=== PATIENT | female | born 1980 ===

== ENCOUNTER 2017-05-25 06:10 | Emergency (ER) | payer MEDICAID ==
[2017-05-25] MEDS ORDERED: Ondansetron 4 MG/2 ML SDV IVPUSH ONE (06:31)
[2017-05-25] MEDS ORDERED: Sodium Chloride 0.9% 1,000 ML IV STA (06:31)
[2017-05-25] MEDS ORDERED: Sodium Chloride 0.9% 10 ML Syringe FLUSH PRN (06:31)
[2017-05-25] MEDS ORDERED: HYDROmorphone 1 MG/ML Syringe IVPUSH ONE (06:32)
--- NOTE | 2017-05-25 06:43 | EDM.PDOC ---
<Ted Smith - Last Filed: 05/25/17 09:13> ED HPI GENERAL MEDICAL PROBLEM - General Chief Complaint: Abdominal Pain Stated Complaint: ABDOMINAL PAIN Time Seen by Provider: 05/25/17 06:27 - Related Data Allergies Allergy/AdvReac Type Severity Reaction Status Date / Time No Known Allergies Allergy Verified 05/25/17 06:19 Home Meds: Home Meds Hydrocodone/Acetaminophen [[place] 5-325 Tablet] 1 - 2 tab PO Q6H PRN #20 tablet 05/25/17 [Rx] Ibuprofen 800 mg PO Q8H PRN 05/25/17 [History] Ondansetron [Zofran ODT] 4 mg PO Q6H PRN #10 tab.dis 05/25/17 [Rx] oxyCODONE HCl/Acetaminophen [Percocet 5-325 mg Tablet] 1 - 2 tab PO Q6H PRN 02/06 [History] Course - Vital Signs Last Recorded V/S: Last Vital Signs Temp 98.1 F 05/25/17 10:00 Pulse 80 05/25/17 10:00 Resp 16 05/25/17 06:16 BP 112/90 05/25/17 10:00 Pulse Ox 97 05/25/17 10:00 - Orders/Labs/Meds Orders: Active Orders 24 hr Category Date Time Status Pelvic Exam, Set Up [RC] ASDIRECTED Care 05/25/17 06:33 Active Peripheral IV Care [RC] . DIRECTED Care 05/25/17 06:31 Active CULTURE GENITAL [RM] Stat Lab 05/25/17 06:57 Received ED Antiemetic Medication Reflex [OM.PC] Stat Oth 05/25/17 06:31 Ordered Peripheral IV Insertion Adult [OM.PC] Stat Oth 05/25/17 06:31 Ordered Labs: Laboratory Tests 05/25/17 05/25/17 05/25/17 Range/Units 06:35 06:35 07:45 WBC 12.93 H (3.98-10.04) K/mm3 RBC 4.25 (3.98-5.22) M/mm3 Hgb 11.7 (11.2-15.7) gm/L Hct 34.4 (34.1-44.9) % MCV 80.9 (79.4-94.8) fl MCH 27.5 (25.6-32.2) pg MCHC 34.0 (32.2-35.5) g/dl RDW Std Deviation 38.9 (36.4-46.3) fL Plt Count 285 (182-369) K/mm3 MPV 10.1 (9.4-12.3) fl Neut % (Auto) 71.2 H (34.0-71.1) % Lymph % (Auto) 20.6 (19.3-51.7) % [place] % (Auto) 6.9 (4.7-12.5) % Eos % (Auto) 0.8 (0.7-5.8) Baso % (Auto) 0.2 (0.1-1.2) % Neut # (Auto) 9.21 H (1.56-6.13) K/mm3 Lymph # (Auto) 2.66 (1.18-3.74) K/mm3 [place] # (Auto) 0.89 H (0.24-0.36) K/mm3 Eos # (Auto) 0.10 (0.04-0.36) K/mm3 Baso # (Auto) 0.03 (0.01-0.08) K/mm3 Sodium 137 (136-145) mEq/L Potassium 3.6 (3.5-5.1) mEq/L Chloride 104 (98-107) mEq/L Carbon Dioxide 24 (21-32) mEq/L Anion Gap 12.6 (5-15) BUN 9 (7-18) mg/dL Creatinine 0.8 (0.55-1.02) mg/dL Est Cr Clr Drug Dosing 99.95 mL/min Estimated GFR (MDRD) > 60 (>60) mL/min BUN/Creatinine Ratio 11.3 L (14-18) Glucose 108 H (74-106) mg/dL Calcium 8.6 (8.5-10.1) mg/dL Total Bilirubin 0.3 (0.2-1.0) mg/dL AST 15 (15-37) U/L ALT 22 (14-59) U/L Alkaline Phosphatase 66 (46-116) U/L Total Protein 7.3 (6.4-8.2) g/dl Albumin 3.4 (3.4-5.0) g/dl Globulin 3.9 gm/dL Albumin/Globulin Ratio 0.9 L (1-2) Lipase 104 (73-393) U/L Urine Color Yellow (Yellow) Urine Appearance Clear (Clear) Urine pH 6.0 (5.0-8.0) Ur Specific [place] > or = 1.030 (1.005-1.030) Urine Protein 1+ H (Negative) Urine Glucose (UA) Negative (Negative) Urine Ketones Negative (Negative) Urine Occult Blood 3+ H (Negative) Urine Nitrite Negative (Negative) Urine Bilirubin Negative (Negative) Urine Urobilinogen 0.2 (0.2-1.0) Ur Leukocyte Esterase Trace H (Negative) Urine RBC 10-20 H (0-5) /hpf Urine WBC 5-10 H (0-5) /hpf Ur Epithelial Cells 5-10 H (0-5) /hpf Urine Bacteria Few (FEW) /hpf Urine Mucus Few (FEW) /hpf Meds: Medications Discontinued Medications Generic Name Dose Route Start Last Admin Trade Name Freq PRN Reason Stop Dose Admin Hydromorphone HCl 1 mg 05/25/17 06:32 05/25/17 06:44 Dilaudid IVPUSH 05/25/17 06:33 1 mg ONETIME ONE Administration Hydromorphone HCl 0.5 mg 05/25/17 08:11 05/25/17 08:20 Dilaudid IVPUSH 05/25/17 08:12 0.5 mg ONETIME ONE Administration Sodium Chloride 1,000 mls @ 1,000 mls/hr 05/25/17 06:31 05/25/17 06:43 Normal Saline IV 05/25/17 07:30 1,000 mls/hr .BOLUS STA Administration Ondansetron HCl 4 mg 05/25/17 06:31 05/25/17 06:44 Zofran IVPUSH 05/25/17 06:32 4 mg ONETIME ONE Administration Sodium Chloride 10 ml 05/25/17 06:31 05/25/17 06:45 Saline Flush FLUSH 10 ml ASDIRECTED PRN Administration Keep Vein Open - Re-Assessments/Exams Free Text/Narrative Re-Assessment/Exam: 05/25/17 09:27 Urinalysis appears contaminated but not suspicious of infection. We'll set up a urine culture. Case reviewed with Dr. Garrido. Patient follow-up with [facility]ODUCTION AIDE on Thursday. With discussion with the patient she's not tolerating her Percocet she thinks she's done well with hydrocodone in the past we'll discharge her with a prescription for hydrocodone and some Zofran to help control her nausea advised her not to take her pain medications with ibuprofen in the future ibuprofen should be taken with food and often the pain medications to be taken with food. Departure - Departure Time of Disposition: 09:29 Disposition: Home, Self-Care 01 Clinical Impression: Pelvic pain - Discharge Information Prescriptions: Hydrocodone/Acetaminophen [[place] 5-325 Tablet] 1 - 2 tab PO Q6H PRN #20 tablet PRN Reason: Abdominal Pain Ondansetron [Zofran ODT] 4 mg PO Q6H PRN #10 tab.dis PRN Reason: Nausea/Vomiting Instructions: Pelvic Pain, Female, [id number] Referrals: Mary Daily MD [Primary Care Provider] - Forms: ED Department Discharge Additional Instructions: Return to the emergency room with any questions or problems or worsening symptoms. Follow-up with [facility] on Thursday for recheck. Stop the Percocet as this is causing problems for you try the [place], or hydrocodone one or 2 every 6 hours as needed for discomfort. Allow 12 hours after using this medication before driving or returning to work. You've also been given a prescription for Zofran take one every 6 hours as needed for nausea and vomiting. Push lots of fluids. Return to the emergency room immediately with any fevers or chills. - My Orders Last 24 Hours: My Active Orders 05/25/17 06:31 Peripheral IV Care [RC] . DIRECTED ED Antiemetic Medication Reflex [OM.PC] Stat Peripheral IV Insertion Adult [OM.PC] Stat 05/25/17 06:33 Pelvic Exam, Set Up [RC] ASDIRECTED 05/25/17 06:57 CULTURE GENITAL [RM] Stat - Assessment/Plan Last 24 Hours: My Active Orders 05/25/17 06:31 Peripheral IV Care [RC] . DIRECTED ED Antiemetic Medication Reflex [OM.PC] Stat Peripheral IV Insertion Adult [OM.PC] Stat 05/25/17 06:33 Pelvic Exam, Set Up [RC] ASDIRECTED 05/25/17 06:57 CULTURE GENITAL [RM] Stat <Pavel Ang Last Filed: 05/25/17 19:46> ED HPI GENERAL MEDICAL PROBLEM - General Source of Information: Reports: Patient History Limitations: Reports: No Limitations - History of Present Illness INITIAL COMMENTS - FREE TEXT/NARRATIVE: The patient presents with lower abdominal pain that radiates to her groin. She had a D&C last Thursday about 5 days ago. She had a incomplete . The D&C was done over at [facility] by Dr Daily. The patient had pain after and has increased. She also has bleeding that was worse right after the procedure. That has gotten better. She has nausea and vomiting. She tried taking her ibuprofen and percocet this morning but she vomited. She has no dysuria and no diarrhea. Onset: Gradual Duration: Day(s): (5) Location: Reports: Abdomen (to her pelvis) Quality: Reports: Sharp Severity: Moderate Improves with: Reports: None Worsens with: Reports: None Associated Symptoms: Reports: Nausea/Vomiting. Denies: Chest Pain, Cough, Fever /Chills, Loss of Appetite, Shortness of Breath Abdomen Pain Score (Numeric/FACES): 9 Past Medical History - Past Surgical History GI Surgical History: Reports: Appendectomy Female Surgical History: Reports: Section, D&C Social & Family History - Tobacco Use Smoking Status *Q: Current Every Day Smoker Years of Tobacco use: 20 Packs/Tins Daily: 0.5 - Caffeine Use Caffeine Use: Reports: Coffee, Tea - Recreational Drug Use Recreational Drug Use: No ED ROS GENERAL - Review of Systems Review Of Systems: See Below Constitutional: Reports: No Symptoms HEENT: Reports: No Symptoms Respiratory: Reports: No Symptoms Cardiovascular: Reports: No Symptoms Endocrine: Reports: No Symptoms GI/Abdominal: Reports: Abdominal Pain (Moderate pain upon palpation to the lower abdomen) : Reports: Other (Pelvic pain and vaginal bleeding) Musculoskeletal: Reports: No Symptoms Skin: Reports: No Symptoms ED EXAM, GI/ABD - Physical Exam Exam: See Below Exam Limited By: No Limitations General Appearance: Alert, No Apparent Distress Ears: Normal External Exam Nose: Normal Inspection Head: Atraumatic, Normocephalic Neck: Normal Inspection Respiratory/Chest: No Respiratory Distress, Lungs Clear, Normal Breath Sounds Cardiovascular: Regular Rate, Rhythm, No Edema, No Murmur GI/Abdominal: Soft, No Organomegaly, No Mass, Tenderness (Moderate to the lower abdomen) (Female) Exam: Other (Normal external exam. Mild amount of blood in the vaginal vault. Cervic is open slightly.) Back Exam: Normal Inspection Extremities: Normal Inspection Course - Orders/Labs/Meds Labs: Laboratory Tests 05/25/17 05/25/17 05/25/17 Range/Units 06:35 06:35 07:45 WBC 12.93 H (3.98-10.04) K/mm3 RBC 4.25 (3.98-5.22) M/mm3 Hgb 11.7 (11.2-15.7) gm/L Hct 34.4 (34.1-44.9) % MCV 80.9 (79.4-94.8) fl MCH 27.5 (25.6-32.2) pg MCHC 34.0 (32.2-35.5) g/dl RDW Std Deviation 38.9 (36.4-46.3) fL Plt Count 285 (182-369) K/mm3 MPV 10.1 (9.4-12.3) fl Neut % (Auto) 71.2 H (34.0-71.1) % Lymph % (Auto) 20.6 (19.3-51.7) % [place] % (Auto) 6.9 (4.7-12.5) % Eos % (Auto) 0.8 (0.7-5.8) Baso % (Auto) 0.2 (0.1-1.2) % Neut # (Auto) 9.21 H (1.56-6.13) K/mm3 Lymph # (Auto) 2.66 (1.18-3.74) K/mm3 [place] # (Auto) 0.89 H (0.24-0.36) K/mm3 Eos # (Auto) 0.10 (0.04-0.36) K/mm3 Baso # (Auto) 0.03 (0.01-0.08) K/mm3 Sodium 137 (136-145) mEq/L Potassium 3.6 (3.5-5.1) mEq/L Chloride 104 (98-107) mEq/L Carbon Dioxide 24 (21-32) mEq/L Anion Gap 12.6 (5-15) BUN 9 (7-18) mg/dL Creatinine 0.8 (0.55-1.02) mg/dL Est Cr Clr Drug Dosing 99.95 mL/min Estimated GFR (MDRD) > 60 (>60) mL/min BUN/Creatinine Ratio 11.3 L (14-18) Glucose 108 H (74-106) mg/dL Calcium 8.6 (8.5-10.1) mg/dL Total Bilirubin 0.3 (0.2-1.0) mg/dL AST 15 (15-37) U/L ALT 22 (14-59) U/L Alkaline Phosphatase 66 (46-116) U/L Total Protein 7.3 (6.4-8.2) g/dl Albumin 3.4 (3.4-5.0) g/dl Globulin 3.9 gm/dL Albumin/Globulin Ratio 0.9 L (1-2) Lipase 104 (73-393) U/L Urine Color Yellow (Yellow) Urine Appearance Clear (Clear) Urine pH 6.0 (5.0-8.0) Ur Specific [place] > or = 1.030 (1.005-1.030) Urine Protein 1+ H (Negative) Urine Glucose (UA) Negative (Negative) Urine Ketones Negative (Negative) Urine Occult Blood 3+ H (Negative) Urine Nitrite Negative (Negative) Urine Bilirubin Negative (Negative) Urine Urobilinogen 0.2 (0.2-1.0) Ur Leukocyte Esterase Trace H (Negative) Urine RBC 10-20 H (0-5) /hpf Urine WBC 5-10 H (0-5) /hpf Ur Epithelial Cells 5-10 H (0-5) /hpf Urine Bacteria Few (FEW) /hpf Urine Mucus Few (FEW) /hpf - Re-Assessments/Exams Free Text/Narrative Re-Assessment/Exam: 05/25/17 06:44 I ordered an IV NS 1L bolus, zofran 4mg IV, dilaudid 1mg IV, labs, UA, pelvic exam and transvaginal US. 05/25/17 06:59 Her pelvic exam shows a cervix that was opened slightly and some bleeding. It is the end of my shift. Dr Smith to take over. Departure - Departure Condition: Good
[2017-05-25] MEDS ORDERED: HYDROmorphone 0.5 MG/0.5 ML Syringe IVPUSH ONE (08:11)
--- NOTE | 2017-05-25 08:38 | US ---
Pelvic ultrasound: Multiple real-time images were obtained transvaginally. Comparison: No previous study is available. Findings: Incidental nabothian cysts are seen. Uterus is anteverted. Good endometrial stripe is not seen. No comments about endometrial thickening can be made. Several small hyperechoic areas are seen within the uterus most likely representing small fibroids. Small complicated area is noted within the left ovary most likely due to collapsing hemorrhagic cyst measuring 1.7 cm which is felt to be of no acute significance. Right ovary also shows a small hypoechoic area measuring 1.7 cm felt to represent an additional collapsing hemorrhagic cyst. This is also felt to be of no acute significance. No free fluid is seen. Measurements: Uterus: Length 9.8 cm, AP height 6 x 1 cm, transverse width 7.9 cm Right ovary: 2.9 x 2.9 x 3.1 cm Left ovary: 4.7 x 3.2 x 4.0 cm Impression: 1. Good endometrial stripe is not seen and no comments can be made about endometrial thickening. 2. Incidental nabothian cyst. Several small uterine fibroids are seen. 3. Other findings which are felt to be incidental as described above. Diagnostic code #3
[2017-05-25 11:12] VITALS: BP 112/90
== END 2017-05-25 10:00 | disposition home or self-care (01) ==
LOC: JD.ED 06:10
DX: R10.2 Pelvic and perineal pain (principal); F17.210 Nicotine dependence, cigarettes, uncomplicated; Z79.899 Other long term (current) drug therapy; Z90.49 Acquired absence of other specified parts of digestive tract
CPT/HCPCS: 36415; 76830; 80053; 81001; 83690; 85025; 87070; 96361; 96374; 96375; 96376; 99284; J1170; J2405; J7040; J7050; 99283